=== PATIENT | female | born 1965 | race Caucasian/White ===

== ENCOUNTER 2016-07-23 17:16 | Inpatient (IN) | payer OTHER ==
[2016-07-23] VITALS (9 sets, daily range): BP systolic 114–209; BP diastolic 64–118; PULSE 71–113; RESP 16–18; TEMP 97.8–98; O2SAT 96–99
[~2016-07-23] VITALS: Ht 165.1 cm; Wt 62.2 kg
[~2016-07-23 17:16] MED LIST: TRAM50 PO
[2016-07-23] MEDS: NITROGLYCERIN 0.4 MG SL 25 TABS/BTL SL SCH ×3 (18:10→18:27)
[2016-07-23] MEDS: SODIUM CHLORIDE 0.9% FLUSH 5 ML FLUSH IVF PRN (18:10)
[2016-07-23] MEDS ORDERED: ASPIRIN 81 MG CHEW TAB PO ONE (18:15)
--- NOTE | 2016-07-23 18:32 | PD ---
HPI Chief Complaint: Cardiac Complaint Time Seen by Provider: 18:02 Travel History International Travel<30 days: No Contact w/Intl Traveler<30days: No Traveled to known affect area: No History of Present Illness HPI 51-year-old female here for evaluation of left arm pain and chest pain. Patient primarily complains of an ache in her left arm that has been intermittent since 1:30 PM. There are no modifying factors. She denies trauma. Pain initially started while the patient was driving. No change with exertion. No change with palpation or movement. Occasionally the patient has a discomfort in her chest. She denies history of cardiac disease. There is family history of cardiac disease on her mom's side. She smokes about a half a pack of cigarettes per day. No paresthesias or motor deficits. No history of DVT or PE. No fevers, chills, cough, or recent illness. PFSH Past Medical History Medical History: Denies Significant Hx Diminished Hearing: No Tetanus Vaccination: > 5 Years Influenza Vaccination: No ?: Not Menopausal: Yes Tubal Ligation: Yes Past Surgical History Section: Yes Social History Alcohol Use: Yes (OCASSIONALLY ) Tobacco Use: Yes (1/2 PACK) Substance Use: No Allergies-Medications (Allergen,Severity, Reaction): Coded Allergies: No Known Allergies (Unverified , 07/23/16) Reported Meds & Prescriptions Reported Meds & Active Scripts Active No Active Prescriptions or Reported Medications Review of Systems Except as stated in HPI: all other systems reviewed are Neg Physical Exam Narrative GENERAL: Well-developed, well-nourished, comfortable, no acute distress. SKIN: Warm and dry. HEAD: Atraumatic. Normocephalic. EYES: Pupils equal and round. No scleral icterus. No injection or drainage. ENT: Mucous membranes pink and moist. NECK: Trachea midline. No JVD. CARDIOVASCULAR: Regular rate and rhythm. Distal pulses brisk and equal bilaterally. RESPIRATORY: No accessory muscle use. Clear to auscultation. Breath sounds equal bilaterally. GASTROINTESTINAL: Abdomen soft, non-tender, nondistended. MUSCULOSKELETAL: No obvious deformities. No clubbing. No cyanosis. No edema. Left arm and shoulder without deformity, without edema, without tenderness, with normal range of motion. NEUROLOGICAL: Awake and alert. No obvious cranial nerve deficits. Motor grossly within normal limits. Normal speech. PSYCHIATRIC: Appropriate mood and affect; insight and judgment normal. Data Data Last Documented VS Vital Signs Date Time Temp Pulse Resp B/P Pulse Ox O2 Delivery O2 Flow Rate FiO2 07/23/16 19:09 17 99 Room Air 07/23/16 19:09 88 07/23/16 19:09 121/74 07/23/16 17:20 97.8 Orders Electrocardiogram (07/23/16 ) Basic Metabolic Panel (Bmp) (07/23/16 18:02) Ckmb (Isoenzyme) Profile (07/23/16 18:02) Complete Blood Count With Diff (07/23/16 18:02) Magnesium (Mg) (07/23/16 18:02) Prothrombin Time / Inr (Pt) (07/23/16 18:02) Act Partial Throm Time (Ptt) (07/23/16 18:02) Troponin I (07/23/16 18:02) Chest, Single Ap (07/23/16 18:02) Ecg Monitoring (07/23/16 18:02) Iv Access Insert/Monitor (07/23/16 18:02) Oximetry (07/23/16 18:02) Aspirin Chew (Aspirin Chew) (07/23/16 18:15) Sodium Chloride 0.9% Flush (Ns Flush) (07/23/16 18:15) Nitroglycerin Sl (Nitrostat Sl) (07/23/16 18:15) CKMB (07/23/16 18:00) CKMB% (07/23/16 18:00) Labs Laboratory Tests Test 07/23/16 18:00 White Blood Count 12.2 TH/MM3 Red Blood Count 4.59 MIL/MM3 Hemoglobin 14.5 GM/DL Hematocrit 41.9 % Mean Corpuscular Volume 91.3 FL Mean Corpuscular Hemoglobin 31.6 PG Mean Corpuscular Hemoglobin 34.7 % Concent Red Cell Distribution Width 12.6 % Platelet Count 324 TH/MM3 Mean Platelet Volume 8.1 FL Neutrophils (%) (Auto) 71.6 % Lymphocytes (%) (Auto) 21.8 % Monocytes (%) (Auto) 5.7 % Eosinophils (%) (Auto) 0.3 % Basophils (%) (Auto) 0.6 % Neutrophils # (Auto) 8.8 TH/MM3 Lymphocytes # (Auto) 2.7 TH/MM3 Monocytes # (Auto) 0.7 TH/MM3 Eosinophils # (Auto) 0.0 TH/MM3 Basophils # (Auto) 0.1 TH/MM3 CBC Comment DIFF FINAL Differential Comment Prothrombin Time 11.1 SEC Prothromb Time International 1.0 RATIO Ratio Activated Partial 26.0 SEC Thromboplast Time Sodium Level 139 MEQ/L Potassium Level 4.0 MEQ/L Chloride Level 103 MEQ/L Carbon Dioxide Level 26.3 MEQ/L Anion Gap 10 MEQ/L Blood Urea Nitrogen 19 MG/DL Creatinine 0.97 MG/DL Estimat Glomerular Filtration 61 ML/MIN Rate Random Glucose 96 MG/DL Calcium Level 9.1 MG/DL Magnesium Level 2.1 MG/DL Total Creatine Kinase 143 U/L Creatine Kinase MB 13.3 NG/ML Troponin I 1.98 NG/ML MDM Medical Decision Making Medical Screen Exam Complete: Yes Emergency Medical Condition: Yes Medical Record Reviewed: Yes Interpretation(s) EKG: Sinus, rate 88, normal axis, normal intervals, ST depressions in inferior, anterior, and lateral leads. The patient has had slight ST depressions in similar leads on previous EKG. No ST segment elevations. Differential Diagnosis ACS, pneumothorax, peritonitis, PE, pneumonia, dissection, musculoskeletal pain Narrative Course Initial vital signs show heart rate 113, blood pressure 209/118, pulse ox 97% on room air, oral temp of 97.8F. Blood pressure improved to 121/74 after sublingual nitroglycerin. Her heart rate also improved to 88 without any intervention. CBC is unremarkable. BMP is unremarkable. Chest x-ray shows no active disease. Troponin is 1.98. Patient's left arm pain initially improved after sublingual nitroglycerin, however returned shortly after. EKG shows ST depressions in inferior, anterior, and lateral leads. There are no ST segment elevations, therefore STEMI alert was not called. Case discussed with on-call mangle roll operator Dr. Rizo who was able to review a copy of the patient's EKG. He recommends starting the patient on a heparin drip as well as a nitro drip, NPO after midnight, and plans for cardiac catheterization in the morning. Patient was made aware of all findings and plan for admission for cardiac catheterization in the morning. Case discussed with hospitalist Dr. Dang who will admit the patient to her service to the [facility]. Diagnosis Primary Impression: NSTEMI (non-ST elevated myocardial infarction) Admitting Information Admitting Physician Requests: Admit Scripts No Active Prescriptions or Reported Meds Dawit Doherty MD Jul 23, 2016 18:32
--- NOTE | 2016-07-23 18:38 | RADRPT ---
EXAM DATE/TIME: 07/23/2016 18:12 [facility] COMPARISON: CHEST SINGLE AP, January 11, 2016, 8:46. INDICATIONS : Chest pain, radiates to left arm. MEDICAL HISTORY : None. SURGICAL HISTORY : None. ENCOUNTER: Initial ACUITY: 1 day PAIN SCORE: 5/10 LOCATION: Bilateral chest FINDINGS: A single view of the chest demonstrates the lungs to be symmetrically aerated without evidence of mas s, infiltrate or effusion. The cardiomediastinal contours are unremarkable. Osseous structures are i ntact. CONCLUSION: No active disease. Simon Redman MD on July 23, 2016 at 18:34 Board Certified Radiologist. This report was verified electronically.
[2016-07-23 18:45] LABS: AUTOMATED NEUTROPHIL # 8.8 TH/MM3 (1.8-7.7); BASOPHIL # 0.1 TH/MM3 (0-0.2); BASOPHIL % 0.6 % (0.0-2.0); EOSINOPHIL % 0.3 % (0.0-4.0); HEMATOCRIT 41.9 % (35.0-46.0); HEMO FLAGS DIFF FINAL; LYMPH % 21.8 % (9.0-44.0); LYMPHOCYTE # 2.7 TH/MM3 (1.0-4.8); MEAN CELL VOLUME 91.3 FL (80.0-100.0); MEAN CORPUSCULAR HEMOGLOBIN 31.6 PG (27.0-34.0); MEAN CORPUSCULAR HGB CONC 34.7 % (32.0-36.0); MONO % 5.7 % (0.0-8.0); NEUT % 71.6 % (16.0-70.0); PLATELET COUNT 324 TH/MM3 (150-450); RED BLOOD COUNT 4.59 MIL/MM3 (4.00-5.30); RED CELL DISTRIBUTION WIDTH 12.6 % (11.6-17.2); WHITE BLOOD COUNT 12.2 TH/MM3 (4.0-11.0)
[2016-07-23 19:02] LABS: PROTHROMBIN TIME - PATIENT 11.1 SEC (9.8-11.6)
[2016-07-23 19:05] LABS: ANION GAP 10 MEQ/L (5-15); BICARBONATE 26.3 MEQ/L (21.0-32.0); BLOOD UREA NITROGEN 19 MG/DL (7-18); CHLORIDE 103 MEQ/L (98-107); GLOMERULAR FILTRATION RATE 61 ML/MIN (>89); MAGNESIUM 2.1 MG/DL (1.5-2.5); SODIUM (NA) 139 MEQ/L (136-145)
[2016-07-23 19:10] LABS: CREATINE KINASE 143 U/L (26-192)
[2016-07-23 19:31] LABS: CKMB 13.3 NG/ML (0.5-3.6)
[2016-07-23] MEDS ORDERED: NITROGLYCERIN-DEXTROSE INJ 250 ML IV SCH (19:45)
[2016-07-23] MEDS ORDERED: NALOXONE HCL 0.4 MG/ML AMP IV PRN (19:45)
[2016-07-23] MEDS ORDERED: SODIUM CHLORIDE 0.9% FLUSH 5 ML FLUSH FLUSH PRN (19:45)
[2016-07-23] MEDS ORDERED: HEPARIN SODIUM - IV 10,000 UNITS/10 ML VIAL IV ONE (19:45)
[2016-07-23] MEDS ORDERED: HEPARIN-D5W INJ 250 ML IV SCH (19:45)
--- NOTE | 2016-07-23 20:35 | HHI.HP ---
[facility] Service [facility] Primary Care Physician Ewa Oconnor MD Admission Diagnosis NSTEMI Diagnoses: Chief Complaint: Chest pain Travel History International Travel<30 Days: No Contact w/Intl Traveler <30 Da: No Traveled to Known Affected Are: No History of Present Illness History taken from patient and ED physician. 51-year-old female with no medical history presented to the ED with complaints of chest pain and left arm pain. Patient states she was driving today and experienced sharp left arm pain that lasted about 20 minutes. Shortly after she began to have chest pain that was unrelieved until she received nitroglycerin in the ED. She denies any associated dizziness, shortness of breath, nausea, vomiting or diarrhea. She denies any history of CO, strokes, DVTs or PEs. She states 19 years ago she did have a left endarterectomy, last ultrasound was 7 years ago, she was not placed on any medications following. Review of Systems Constitutional: DENIES: Fever, Chills, Dizziness Respiratory: DENIES: Cough, Sputum production, Shortness of breath Cardiovascular: COMPLAINS OF: Chest pain, DENIES: Palpitations, Syncope, Dyspnea on Exertion, Lower Extremity Edema, Orthopnea Gastrointestinal: DENIES: Black stools, Bloody stools, Constipation, Diarrhea, Nausea, Vomiting Genitourinary: DENIES: Hematuria, Dysuria Musculoskeletal: DENIES: Back pain Integumentary: DENIES: Rash Hematologic/lymphatic: DENIES: Lymphadenopathy Neurologic: DENIES: Headache Past Family Social History Past Medical History Patient denies any medical history Past Surgical History Left endarterectomy 1997 1999 Reported Medications Reported Meds & Active Scripts Active No Active Prescriptions or Reported Medications Allergies: Coded Allergies: No Known Allergies (Unverified , 07/23/16) Active Ordered Medications Current Medications Medications (Trade) Dose Ordered Sig/[place] Route Start Time Stop Time Status Last Admin (Heparin Inj) 5,000 units UNSCH PRN IV 07/24/16 01:45 Heparin Sodium (Porcine) 2500 units 2,500 units UNSCH PRN IV 07/24/16 01:45 Heparin Sodium/ Dextrose 250 ml @ 0 mls/hr TITRATE IV 07/23/16 19:45 07/23/16 19:58 (Nitroglycerin-Dextrose Inj) 250 ml @ 0 mls/hr TITRATE IV 07/23/16 19:45 07/23/16 20:01 (NS Flush) 2 ml UNSCH PRN FLUSH 07/23/16 19:45 (NS Flush) 2 ml BID FLUSH 07/23/16 21:00 (Narcan Inj) 0.4 mg UNSCH PRN IV 07/23/16 19:45 Family History Mom: Cardiac disease Social History Tobacco use: 1/2 ppd since age 20 Alcohol use: Occasionally Illicit drug use: Denies Physical Exam Vital Signs Vital Signs Date Time Temp Pulse Resp B/P Pulse Ox O2 Delivery O2 Flow Rate FiO2 07/23/16 20:11 76 18 140/89 98 Room Air 07/23/16 20:06 16 07/23/16 20:00 89 17 155/78 98 Room Air 07/23/16 19:09 17 99 Room Air 07/23/16 19:09 88 17 99 Room Air 07/23/16 19:09 88 17 121/74 99 Room Air 07/23/16 18:20 92 18 114/64 98 Room Air 07/23/16 18:15 89 18 149/92 98 Room Air 07/23/16 18:15 16 07/23/16 18:05 92 17 98 Room Air 07/23/16 18:05 18 98 Room Air 07/23/16 17:20 97.8 113 16 209/118 97 Physical Exam GENERAL: This is a well-nourished, well-developed patient, in no apparent distress. SKIN: No rashes, ecchymoses or lesions. Cool and dry. HEAD: Atraumatic. Normocephalic. EYES: Pupils equal round and reactive. ENT: Nose without bleeding, purulent drainage or septal hematoma. Airway patent. NECK: Trachea midline. No JVD CARDIOVASCULAR: Regular rate and rhythm without murmurs, gallops, or rubs. RESPIRATORY: Clear to auscultation. Breath sounds equal bilaterally. No wheezes , rales, or rhonchi. GASTROINTESTINAL: Abdomen soft, non-tender, nondistended. No guarding. MUSCULOSKELETAL: Extremities without clubbing, cyanosis, or edema. No calf tenderness. NEUROLOGICAL: Awake and alert. Motor and sensory grossly within normal limits. Normal speech. Laboratory Laboratory Tests Test 07/23/16 18:00 White Blood Count 12.2 Red Blood Count 4.59 Hemoglobin 14.5 Hematocrit 41.9 Mean Corpuscular Volume 91.3 Mean Corpuscular Hemoglobin 31.6 Mean Corpuscular Hemoglobin 34.7 Concent Red Cell Distribution Width 12.6 Platelet Count 324 Mean Platelet Volume 8.1 Neutrophils (%) (Auto) 71.6 Lymphocytes (%) (Auto) 21.8 Monocytes (%) (Auto) 5.7 Eosinophils (%) (Auto) 0.3 Basophils (%) (Auto) 0.6 Neutrophils # (Auto) 8.8 Lymphocytes # (Auto) 2.7 Monocytes # (Auto) 0.7 Eosinophils # (Auto) 0.0 Basophils # (Auto) 0.1 CBC Comment DIFF FINAL Differential Comment Prothrombin Time 11.1 Prothromb Time International 1.0 Ratio Activated Partial 26.0 Thromboplast Time Sodium Level 139 Potassium Level 4.0 Chloride Level 103 Carbon Dioxide Level 26.3 Anion Gap 10 Blood Urea Nitrogen 19 Creatinine 0.97 Estimat Glomerular Filtration 61 Rate Random Glucose 96 Calcium Level 9.1 Magnesium Level 2.1 Total Creatine Kinase 143 Creatine Kinase MB 13.3 Troponin I 1.98 Result Diagram: 07/23/16 1800 07/23/16 1800 Imaging Last Impressions Chest X-Ray 07/23/16 1802 Signed Impressions: Service Date/Time: Saturday, July 23, 2016 18:12 - CONCLUSION: No active disease. Simon Redman MD Assessment and Plan Problem List: (1) NSTEMI (non-ST elevated myocardial infarction) ICD Code: I21.4 Status: Acute Assessment and Plan 51-year-old female with no medical history presented with: NSTEMI EKG shows sinus rhythm with ST depression in leads II, II, AVF, V3, V4 and V6 Chest x-ray unremarkable Troponin first set 1.98, 2nd set pending -Nitroglycerin drip was started -Heparin drip was started for CO protocol -Serial troponin and EKGs ordered -Consult cardiology, Dr. Rizo is planning for catheter in a.m. -Monitor tele DVT prophylaxis: Heparin Written by Sona NATH, acting as scribe for Dr. Dang on 07/23/16 at 2009. The documentation accurately reflects the work performed [id number] and decisions made by me and the physician Dr Dang on 07/23/16. The documentation accurately reflects the work performed [id number] by me on at 2010 Discussed Condition With Patient and ED physician Physician Certification 2 Midnight Certification Type: Admission for Inpatient Services Order for Inpatient Services The services are ordered in accordance with Medicare regulations or non- Medicare payer requirements, as applicable. In the case of services not specified as inpatient-only, they are appropriately provided as inpatient services in accordance with the 2-midnight benchmark. Estimated LOS (days): 3 days is the estimated time the patient will need to remain in the hospital, assuming treatment plan goals are met and no additional complications. Post-Hospital Plan: Sona Newman Jul 23, 2016 20:34 Chance Dang MD Jul 24, 2016 08:01
[2016-07-23] MEDS: SODIUM CHLORIDE 0.9% FLUSH 5 ML FLUSH FLUSH SCH (21:00)
[2016-07-24] VITALS (18 sets, daily range): BP systolic 102–128; BP diastolic 66–78; PULSE 67–98; RESP 16–18; TEMP 97.6–100.3; O2SAT 94–98
[2016-07-24] MEDS ORDERED: HEPARIN SODIUM - IV 10,000 UNITS/10 ML VIAL IV PRN ×2 (01:45)
[2016-07-24 01:51] LABS: CKMB 97.1 NG/ML (0.5-3.6)
[2016-07-24 03:06] LABS: APTT (PATIENT) 33.4 SEC (24.3-30.1)
[2016-07-24 03:51] LABS: APTT (PATIENT) 33.8 SEC (24.3-30.1)
[2016-07-24 04:10] LABS: BICARBONATE 27.3 MEQ/L (21.0-32.0); POTASSIUM 3.9 MEQ/L (3.5-5.1)
[2016-07-24 04:13] LABS: AUTOMATED NEUTROPHIL # 6.4 TH/MM3 (1.8-7.7); BASOPHIL # 0.1 TH/MM3 (0-0.2); EOSINOPHIL # 0.1 TH/MM3 (0-0.4); EOSINOPHIL % 1.2 % (0.0-4.0); HEMATOCRIT 40.9 % (35.0-46.0); HEMO FLAGS DIFF FINAL; LYMPHOCYTE # 2.8 TH/MM3 (1.0-4.8); MEAN CELL VOLUME 90.3 FL (80.0-100.0); MEAN CORPUSCULAR HEMOGLOBIN 31.4 PG (27.0-34.0); MEAN CORPUSCULAR HGB CONC 34.8 % (32.0-36.0); MONO % 8.5 % (0.0-8.0); NEUT % 62.3 % (16.0-70.0); PLATELET COUNT 295 TH/MM3 (150-450); RED BLOOD COUNT 4.53 MIL/MM3 (4.00-5.30); RED CELL DISTRIBUTION WIDTH 12.8 % (11.6-17.2); WHITE BLOOD COUNT 10.3 TH/MM3 (4.0-11.0)
[2016-07-24 04:33] LABS: CKMB 106.5 NG/ML (0.5-3.6)
--- NOTE | 2016-07-24 07:41 | PD.CONS ---
HPI Service CV Consult Requested By Dr. Dang Reason for Consult NSTEMI Primary Care Physician Ewa Oconnor MD History of Present Illness This is a 51 yo WF smoker with no prior cardiac history who presented to the ED yesterday with chest and left arm pain. She states she's had intermittent bilateral arm pain and numbness for awhile but yesterday as she was sitting in her car on a break her left arm became heavy with pain developing in her chest radiating to left arm. She denies SOB, palpitations or nausea. (Lizy Benavides) Review of Systems Consitutional: DENIES: Fatigue, Fever, Chills Respiratory: DENIES: Cough, Snoring, Shortness of breath, Wheezing, Sputum production Cardiovascular: DENIES: Chest pain, Palpitations, Syncope, Tachycardia Gastrointestinal: DENIES: Nausea, Vomiting, Change in bowel habits, Reflux, Bloody stools, Melena (Lizy Benavides) Past Family Social History Allergies: Coded Allergies: No Known Allergies (Unverified , 07/23/16) Past Medical History tobacco abuse Past Surgical History Left endarterectomy 1997 1999 Reported Medications none Active Ordered Medications Current Medications Medications (Trade) Dose Ordered Sig/[place]iet[place] Route Start Time Stop Time Status Last Admin (Heparin Inj) 5,000 units UNSCH PRN IV 07/24/16 01:45 Heparin Sodium (Porcine) 2500 units 2,500 units UNSCH PRN IV 07/24/16 01:45 Heparin Sodium/ Dextrose 250 ml @ 0 mls/hr TITRATE IV 07/23/16 19:45 07/23/16 19:58 (Nitroglycerin-Dextrose Inj) 250 ml @ 0 mls/hr TITRATE IV 07/23/16 19:45 07/23/16 20:01 (NS Flush) 2 ml UNSCH PRN FLUSH 07/23/16 19:45 (NS Flush) 2 ml BID FLUSH 07/23/16 21:00 (Narcan Inj) 0.4 mg UNSCH PRN IV 07/23/16 19:45 Family History mother has cardiac disease Social History tobacco smoker since a teenager (Lizy Benavides) Physical Exam Vital Signs Vital Signs Date Time Temp Pulse Resp B/P Pulse Ox O2 Delivery O2 Flow Rate FiO2 07/24/16 05:00 76 18 123/73 96 Nasal Cannula 2 07/24/16 03:00 78 18 112/71 94 Nasal Cannula 2 07/24/16 01:00 71 18 128/76 97 Nasal Cannula 2 07/23/16 23:00 71 18 127/74 96 Nasal Cannula 2 07/23/16 22:00 98.0 77 17 136/76 98 Room Air 07/23/16 20:11 76 18 140/89 98 Room Air 07/23/16 20:06 16 07/23/16 20:00 89 17 155/78 98 Room Air 07/23/16 19:09 17 99 Room Air 07/23/16 19:09 88 17 99 Room Air 07/23/16 19:09 88 17 121/74 99 Room Air 07/23/16 18:20 92 18 114/64 98 Room Air 07/23/16 18:15 89 18 149/92 98 Room Air 07/23/16 18:15 16 07/23/16 18:05 92 17 98 Room Air 07/23/16 18:05 18 98 Room Air 07/23/16 17:20 97.8 113 16 209/118 97 Physical Exam GENERAL: SKIN: Warm and dry. HEAD: Atraumatic. Normocephalic. NECK: Trachea midline. No JVD. CARDIOVASCULAR: Regular rate and rhythm. RESPIRATORY: No accessory muscle use. Clear to auscultation. Breath sounds equal bilaterally. GASTROINTESTINAL: Abdomen soft, non-tender, nondistended. MUSCULOSKELETAL: Extremities without clubbing, cyanosis, or edema. No obvious deformities. NEUROLOGICAL: Awake and alert. No obvious cranial nerve deficits. Motor grossly within normal limits. Normal speech. PSYCHIATRIC: Appropriate mood and affect; insight and judgment normal. Laboratory Laboratory Tests Test 07/23/16 07/23/16 07/23/16 07/23/16 18:00 21:00 22:43 23:30 White Blood Count 12.2 Red Blood Count 4.59 Hemoglobin 14.5 Hematocrit 41.9 Mean Corpuscular Volume 91.3 Mean Corpuscular Hemoglobin 31.6 Mean Corpuscular Hemoglobin 34.7 Concent Red Cell Distribution Width 12.6 Platelet Count 324 Mean Platelet Volume 8.1 Neutrophils (%) (Auto) 71.6 Lymphocytes (%) (Auto) 21.8 Monocytes (%) (Auto) 5.7 Eosinophils (%) (Auto) 0.3 Basophils (%) (Auto) 0.6 Neutrophils # (Auto) 8.8 Lymphocytes # (Auto) 2.7 Monocytes # (Auto) 0.7 Eosinophils # (Auto) 0.0 Basophils # (Auto) 0.1 CBC Comment DIFF FINAL Differential Comment Prothrombin Time 11.1 Prothromb Time International 1.0 Ratio Activated Partial 26.0 Thromboplast Time Sodium Level 139 Potassium Level 4.0 Chloride Level 103 Carbon Dioxide Level 26.3 Anion Gap 10 Blood Urea Nitrogen 19 Creatinine 0.97 Estimat Glomerular Filtration 61 Rate Random Glucose 96 Calcium Level 9.1 Magnesium Level 2.1 Total Creatine Kinase 143 Creatine Kinase MB 13.3 Troponin I 1.98 Beta HCG, Qualitative 4 Blood Type B POSITIVE B POSITIVE B POSITIVE Antibody Screen POSITIVE Antibody Identification Non-Specific Agglutinin Antigen Identification Leb Antigen - NEGATIVE Blood Bank Comment Crossmatch Leukocyte-Reduced Red Blood Cells Test 07/24/16 07/24/16 07/24/16 00:30 02:20 03:26 Total Creatine Kinase 749 802 Creatine Kinase MB 97.1 106.5 Creatine Kinase MB % 13.0 13.3 Troponin I 18.90 23.20 Activated Partial 33.4 33.8 Thromboplast Time White Blood Count 10.3 Red Blood Count 4.53 Hemoglobin 14.2 Hematocrit 40.9 Mean Corpuscular Volume 90.3 Mean Corpuscular Hemoglobin 31.4 Mean Corpuscular Hemoglobin 34.8 Concent Red Cell Distribution Width 12.8 Platelet Count 295 Mean Platelet Volume 8.3 Neutrophils (%) (Auto) 62.3 Lymphocytes (%) (Auto) 27.0 Monocytes (%) (Auto) 8.5 Eosinophils (%) (Auto) 1.2 Basophils (%) (Auto) 1.0 Neutrophils # (Auto) 6.4 Lymphocytes # (Auto) 2.8 Monocytes # (Auto) 0.9 Eosinophils # (Auto) 0.1 Basophils # (Auto) 0.1 CBC Comment DIFF FINAL Differential Comment Sodium Level 138 Potassium Level 3.9 Chloride Level 106 Carbon Dioxide Level 27.3 Anion Gap 5 Blood Urea Nitrogen 15 Creatinine 0.74 Estimat Glomerular Filtration 83 Rate Random Glucose 96 Calcium Level 9.0 (Lizy Benavides) Result Diagram: 07/24/16 0326 07/24/16 0326 Imaging Last Impressions Chest X-Ray 07/23/16 1802 Signed Impressions: Service Date/Time: Saturday, July 23, 2016 18:12 - CONCLUSION: No active disease. Simon Redman MD (Lizy Benavides) Assessment and Plan Problem List: (1) NSTEMI (non-ST elevated myocardial infarction) Assessment and Plan: ECG shows ST depression to inferior, precordial and lateral leads. Troponins elevated. Will plan for cardiac catheterization this morning. (Lizy Benavides) Assessment and Plan NSTEMI - + symptoms. + EKG changes. Plan for [facility]. 2d echo. (Bright Rizo MD) Lizy Benavides Jul 24, 2016 07:41 Bright Rizo MD Jul 24, 2016 07:48
[2016-07-24] MEDS ORDERED: MIDAZOLAM HCL 2 MG/2 ML VIAL ONE ×2 (08:52→09:24)
[2016-07-24] MEDS ORDERED: HEPARIN-NS/PF INJ 500 ML ONE (08:52)
[2016-07-24] MEDS: SODIUM CHLORIDE 0.9% FLUSH 5 ML FLUSH FLUSH SCH ×2 (09:00→20:43)
[2016-07-24] MEDS: ASPIRIN EC 81 MG TABEC PO SCH (09:00)
[2016-07-24] MEDS: ATORVASTATIN 40 MG TAB PO SCH (09:00)
[2016-07-24] MEDS: METOPROLOL TARTRATE 25 MG TAB PO SCH ×2 (09:00→20:42)
[2016-07-24] MEDS ORDERED: HEPARIN SODIUM - IV 10,000 UNITS/10 ML VIAL ONE (09:16)
[2016-07-24] MEDS ORDERED: BIVALIRUDIN 250 MG VIAL ONE (09:26)
[2016-07-24] MEDS ORDERED: PRASUGREL 10 MG TAB ONE (09:42)
[2016-07-24] MEDS ORDERED: IOHEXOL 350 MG/ML 50 ML BTL (for Cath Lab) OTHER ONE (11:04)
[2016-07-24] MEDS ORDERED: IOHEXOL 350 MG/ML 100 ML BTL (for Cath Lab) OTHER ONE (11:04)
[2016-07-24] MEDS ORDERED: BACITRACIN OINT 0.9 GM PKT TOP ONE (11:30)
[2016-07-24] MEDS ORDERED: MISC INFORMATION XX ONE (11:30)
[2016-07-24] MEDS ORDERED: LIDOCAINE 2% JELLY 30 ML TUBE TOP PRN (11:30)
--- NOTE | 2016-07-24 11:30 | MA ---
cc: DANNY ARIAS DATE 07/24/2016 PROCEDURE PERFORMED 1. Fluoroscopy with interpretation 2. Coronary angiography 3. Left heart catheterization 4. Percutaneous intervention with bare metal stent to the ramus intermedius branch. METHOD The risks, benefits and alternatives discussed with the patient. The patient understood and consented to the procedure. PROCEDURE The patient was brought into the catheterization lab, placed on the catheterization table. The right wrist was prepped and draped in a sterile fashion. The right wrist was anesthetized with 2% lidocaine. The right radial artery was cannulated and a 6-Bolivian 7 cm sheath was placed without difficulty. Left heart catheterization; A 5-Bolivian JR-5 catheter was advanced across the aortic valve without difficulty intraventricular hemodynamics measured 109/7 mmHg. CORONARY ANGIOGRAPHY The left coronary circulation was selectively engaged with a 5-Bolivian JL-3.5 catheter. Right coronary circulation was selectively engaged with a 5-Bolivian JR-5 catheter. Angiography findings as follows: 1. Left main is very short, but angiographically normal. 2. Left anterior descending coronary is a large caliber size angiographically normal. 3. Left circumflex is a dominant vessel giving rise to a left-sided posterior descending branch and a first obtuse marginal branch, both which are angiographically normal. There is a ramus intermedius branch with a 90% discrete stenosis proximally. 4. The right coronary is nondominant and angiographically normal. PERCUTANEOUS INTERVENTION The left coronary circulation was selectively engaged with a 6-Bolivian JL-4 guide catheter. Angiomax was administered throughout the entire procedure to maintain appropriate angulation. A 0.014 inch 180 cm Facishare run-through wire was navigated down the distal ramus intermedius branch. A 2.0 x 12 mm RX bare metal stent was advanced to the proximal ramus intermedius branch and deployed to 12 atmospheres. Repeat angiography showed no residual stenosis. Careful attention was paid not to extend the stent into the left main. The wire was removed. Guide catheter removed. HemoBand applied. CONCLUSIONS 1. Severe single-vessel coronary artery disease involving the ramus intermedius branch. 2. Successful percutaneous intervention with bare metal stent to the ramus intermedius branch. 3. Normal left-sided filling pressures. PLAN The patient will be monitored closely for any post procedural complications. We will get a 2-D echocardiogram for ejection fraction and we will monitor for any arrhythmias. We will initiate aspirin, Effient, statin, beta sharon. Anticipate discharge tomorrow. MD CANELO Cee /9:54 AM /11:24 AM HALEY
--- NOTE | 2016-07-24 13:30 | HHI.PR ---
Subjective Remarks Follow-up for chest pain Status post cardiac catheterization with stent placement, mild chest pain now but a lot better, no shortness of breath, no palpitations, nausea or vomiting. Objective Vitals Vital Signs Date Time Temp Pulse Resp B/P Pulse Ox O2 Delivery O2 Flow Rate FiO2 07/24/16 12:54 79 07/24/16 08:40 79 20 117/78 97 07/24/16 07:40 98.6 75 18 124/72 96 Room Air 07/24/16 05:00 76 18 123/73 96 Nasal Cannula 2 07/24/16 03:00 78 18 112/71 94 Nasal Cannula 2 07/24/16 01:00 71 18 128/76 97 Nasal Cannula 2 07/23/16 23:00 71 18 127/74 96 Nasal Cannula 2 07/23/16 22:00 98.0 77 17 136/76 98 Room Air 07/23/16 20:11 76 18 140/89 98 Room Air 07/23/16 20:06 16 07/23/16 20:00 89 17 155/78 98 Room Air 07/23/16 19:09 17 99 Room Air 07/23/16 19:09 88 17 99 Room Air 07/23/16 19:09 88 17 121/74 99 Room Air 07/23/16 18:20 92 18 114/64 98 Room Air 07/23/16 18:15 89 18 149/92 98 Room Air 07/23/16 18:15 16 07/23/16 18:05 92 17 98 Room Air 07/23/16 18:05 18 98 Room Air 07/23/16 17:20 97.8 113 16 209/118 97 I/O 07/23/16 07/23/16 07/23/16 07/24/16 07/24/16 07/24/16 07:00 15:00 23:00 07:00 15:00 23:00 Intake Total 1.5 ml Balance 1.5 ml Intake IV Total 1.5 ml Result Diagram: 07/24/166 07/24/16325 Objective Remarks Not in distress, well-nourished, looks stated age PERRL, pink conjunctiva without injection, anicteric Nose without bleeding, airway patent, oropharynx clear Supple neck, no masses or thyromegaly, trachea midline Normal rate and regular rhythm, no murmurs gallops or rubs appreciated. Clear to auscultation and symmetric bilaterally, normal respiratory effort. Normal bowel sounds, soft, non-tender, nondistended, no guarding. Extremities without clubbing, cyanosis, or edema. No rash of generalized distribution. Skin is warm and dry. AAO x3, no cranial nerve deficits, moves all 4 extremities, no focal neurologic deficits Normal mood, appropriate affect Procedures Status post cardiac catheterization and PCI to the Ramus intermedius. A/P Problem List: (1) NSTEMI (non-ST elevated myocardial infarction) ICD Code: I21.4 Status: Acute Assessment and Plan 51-year-old female with no medical history presented with: NSTEMI - EKG shows sinus rhythm with ST depression in leads II, II, AVF, V3, V4 and V6, troponin max of 23.3, cardiology was consulted, status post cardiac catheterization with stenting of the ramus intermedius. Aspirin, Lipitor, metoprolol, Effient. Further management per cardiology. Leukocytosis-resolved likely stress-induced. DVT prophylaxis: Effient Discharge Planning Discharge tomorrow once cleared by cardiology. Josue Koehler MD Jul 24, 2016 13: at 2009 Josue Koehler MD Jul 24, 2016 13:30
--- NOTE | 2016-07-24 13:41 | EKG ---
Date Performed: 07/24/2016 Time Performed: 00:38:07 PTAGE: 51 years EKG: Sinus rhythm MODERATE ST DEPRESSION ABNORMAL ECG Compared to prior tracing no significant change PREVIOUS TRACING : 07/24/2016 00.38.07 DOCTOR: Cari Ruiz Interpretating Date/Time 07/24/2016 13:40:15
--- NOTE | 2016-07-24 13:41 | EKG ---
Date Performed: 07/23/2016 Time Performed: 17:47:44 PTAGE: 51 years EKG: Sinus rhythm ST DEPRESSION, CONSIDER SUBENDOCARDIAL INJURY ABNORMAL ECG Compared to prior tracing no significant change PREVIOUS TRACING : 01/11/2016 08.44 DOCTOR: Cari Ruiz Interpretating Date/Time 07/24/2016 13:39:52
--- NOTE | 2016-07-24 14:47 | EKG ---
Date Performed: 07/24/2016 Time Performed: 05:57:25 PTAGE: 51 years EKG: Sinus rhythm WITH SINUS ARRHYTHMIA MODERATE ST DEPRESSION ABNORMAL ECG Compared to the PREVIOUS TRACING , there has been an increase in the diffuse ST segment changes. Patient has developed ST elevation in lead aVL. Clinical correlation to exclude myocardial ischemia or injur y would be important. PREVIOUS TRACIN07/23/2016 17.47 DOCTOR: Cari Ruiz Interpretating Date/Time 07/24/2016 14:46:00
[2016-07-24] MEDS ORDERED: SODIUM CHLORIDE 0.9% FLUSH 5 ML FLUSH IVF SCH (21:00)
[2016-07-25] VITALS (8 sets, daily range): BP systolic 112–118; BP diastolic 68–71; PULSE 69–82; RESP 16–17; TEMP 98.7–98.9; O2SAT 96–98
[2016-07-25 05:21] LABS: AUTOMATED NEUTROPHIL # 5.4 TH/MM3 (1.8-7.7); BASOPHIL # 0.1 TH/MM3 (0-0.2); BASOPHIL % 1.2 % (0.0-2.0); EOSINOPHIL # 0.1 TH/MM3 (0-0.4); EOSINOPHIL % 0.9 % (0.0-4.0); HEMATOCRIT 41.4 % (35.0-46.0); HEMO FLAGS DIFF FINAL; LYMPH % 30.1 % (9.0-44.0); LYMPHOCYTE # 2.9 TH/MM3 (1.0-4.8); MEAN CELL VOLUME 90.5 FL (80.0-100.0); MEAN CORPUSCULAR HEMOGLOBIN 31.7 PG (27.0-34.0); MONO % 12.2 % (0.0-8.0); NEUT % 55.6 % (16.0-70.0); PLATELET COUNT 293 TH/MM3 (150-450); RED BLOOD COUNT 4.58 MIL/MM3 (4.00-5.30); RED CELL DISTRIBUTION WIDTH 12.9 % (11.6-17.2); WHITE BLOOD COUNT 9.7 TH/MM3 (4.0-11.0)
[2016-07-25 05:48] LABS: BICARBONATE 25.1 MEQ/L (21.0-32.0)
[2016-07-25 05:50] LABS: HDL CHOLESTEROL 47.2 MG/DL (40.0-60.0)
[2016-07-25 06:07] LABS: CKMB 15.1 NG/ML (0.5-3.6)
--- NOTE | 2016-07-25 08:20 | PD.CARD.PN ---
Subjective Subjective Remarks no events Objective Medications Active Medications Aspirin (Ecotrin Ec) 81 mg DAILY PO; Start 07/24/16 at 09:00 Atorvastatin Calcium (Lipitor) 40 mg DAILY PO; Start 07/24/16 at 09:00 Bacitracin (Bacitracin Oint Packet) 0.9 gm ONCE ONCE TOP; Start 07/24/16 at 11: 30; Stop 07/24/16 at 11:31; Status DC Bivalirudin (Angiomax Inj) 250 mg STK-MED ONCE .ROUTE Last administered on 09:26; Admin Dose 250 MG; Start 07/24/16 at 09:26; Stop 07/24/16 at 09:27; Status DC Fentanyl Citrate (fentaNYL INJ) 100 mcg STK-MED ONCE .ROUTE Last administered on 07/24/16 08:53; Admin Dose 100 MCG; Start 07/24/16 at 08:53; Stop 07/24/16 at 08:54; Status DC Heparin Sodium (Porcine) (Heparin Inj) 10,000 units STK-MED ONCE .ROUTE Last administered on 07/24/16 09:16; Admin Dose 10,000 UNITS; Start 07/24/16 at 09: 16; Stop 07/24/16 at 09:17; Status DC Heparin Sodium/ Sodium Chloride (Heparin-NS/Pf Inj) 500 ml @ As Directed STK- MED ONCE .ROUTE; Start 07/24/16 at 08:52; Stop 07/24/16 at 08:53; Status DC Iohexol (OMNIPAQUE 350 INJ (Engineering Faculty Member)) 50 ml STK-MED ONCE OTHER; Start 07/24/16 at 11:04; Stop 07/24/16 at 11:05; Status DC Iohexol (OMNIPAQUE 350 INJ (Engineering Faculty Member)) 100 ml STK-MED ONCE OTHER; Start at 11:04; Stop 07/24/16 at 11:05; Status DC IV Flush (NS Flush) 2 ml BID IVF; Start 07/24/16 at 21:00; Stop 07/24/16 at 21: 00; Status DC Metoprolol Tartrate 25 mg 25 mg Q12HR PO Last administered on 07/24/16 20:42; Admin Dose 25 MG; Start 07/24/16 at 09:00 Midazolam HCl (Versed Inj) 2 mg STK-MED ONCE .ROUTE Last administered on 08:52; Admin Dose 2 MG; Start 07/24/16 at 08:52; Stop 07/24/16 at 08:53; Status DC Midazolam HCl (Versed Inj) 2 mg STK-MED ONCE .ROUTE Last administered on 09:24; Admin Dose 2 MG; Start 07/24/16 at 09:24; Stop 07/24/16 at 09:25; Status DC Miscellaneous Information 1 ONCE ONCE XX; Start 07/24/16 at 11:30; Stop at 11:32; Status DC Prasugrel (Effient) 10 mg DAILY PO; Start 07/25/16 at 09:00 Prasugrel (Effient) 60 mg STK-MED ONCE .ROUTE Last administered on 07/24/16 09: 42; Admin Dose 60 MG; Start 07/24/16 at 09:42; Stop 07/24/16 at 09:43; Status DC Vital Signs / I&O Vital Signs Date Time Temp Pulse Resp B/P Pulse Ox O2 Delivery O2 Flow Rate FiO2 07/25/16 06:00 78 07/25/16 05:00 77 07/25/16 04:00 82 07/25/16 04:00 98.7 69 16 118/68 98 07/25/16 03:00 78 07/25/16 02:00 72 07/25/16 01:00 72 07/25/16 00:00 74 07/25/16 00:00 98.9 80 116/71 98 07/24/16 23:00 79 07/24/16 22:00 79 07/24/16 21:00 86 07/24/16 20:00 100.3 98 16 105/74 98 07/24/16 20:00 92 07/24/16 19:00 95 07/24/16 17:00 92 07/24/16 16:57 97.6 87 16 102/66 97 07/24/16 16:00 97 07/24/16 15:00 90 07/24/16 14:00 94 07/24/16 13:00 96 07/24/16 12:54 79 07/24/16 12:00 98.2 67 17 115/70 98 07/24/16 08:40 79 20 117/78 97 I/O 07/24/16 07/24/16 07/24/16 07/25/16 07/25/16 07/25/16 07:00 15:00 23:00 07:00 15:00 23:00 Intake Total 360 ml Balance 360 ml Intake Oral 360 ml # Voids 2 Physical Exam GENERAL: SKIN: Warm and dry. HEAD: Normocephalic. EYES: No scleral icterus. No injection or drainage. NECK: Supple, trachea midline. No JVD or lymphadenopathy. CARDIOVASCULAR: Regular rate and rhythm without murmurs, gallops, or rubs. RESPIRATORY: Breath sounds equal bilaterally. No accessory muscle use. GASTROINTESTINAL: Abdomen soft, non-tender, nondistended. MUSCULOSKELETAL: No cyanosis, or edema. BACK: Nontender without obvious deformity. No CVA tenderness. Laboratory Laboratory Tests Test 07/25/16 04:45 White Blood Count 9.7 TH/MM3 Red Blood Count 4.58 MIL/MM3 Hemoglobin 14.5 GM/DL Hematocrit 41.4 % Mean Corpuscular Volume 90.5 FL Mean Corpuscular Hemoglobin 31.7 PG Mean Corpuscular Hemoglobin 35.0 % Concent Red Cell Distribution Width 12.9 % Platelet Count 293 TH/MM3 Mean Platelet Volume 8.1 FL Neutrophils (%) (Auto) 55.6 % Lymphocytes (%) (Auto) 30.1 % Monocytes (%) (Auto) 12.2 % Eosinophils (%) (Auto) 0.9 % Basophils (%) (Auto) 1.2 % Neutrophils # (Auto) 5.4 TH/MM3 Lymphocytes # (Auto) 2.9 TH/MM3 Monocytes # (Auto) 1.2 TH/MM3 Eosinophils # (Auto) 0.1 TH/MM3 Basophils # (Auto) 0.1 TH/MM3 CBC Comment DIFF FINAL Differential Comment Sodium Level 138 MEQ/L Potassium Level 4.0 MEQ/L Chloride Level 107 MEQ/L Carbon Dioxide Level 25.1 MEQ/L Anion Gap 6 MEQ/L Blood Urea Nitrogen 17 MG/DL Creatinine 0.78 MG/DL Estimat Glomerular Filtration 78 ML/MIN Rate Random Glucose 89 MG/DL Calcium Level 9.1 MG/DL Total Creatine Kinase 285 U/L Creatine Kinase MB 15.1 NG/ML Creatine Kinase MB % 5.3 % Triglycerides Level 67 MG/DL Cholesterol Level 158 MG/DL LDL Cholesterol 97 MG/DL HDL Cholesterol 47.2 MG/DL Cholesterol/HDL Ratio 3.34 RATIO Imaging Last Impressions Chest X-Ray 07/23/16 1802 Signed Impressions: Service Date/Time: Saturday, July 23, 2016 18:12 - CONCLUSION: No active disease. Simon Redman MD Assessment and Plan Problem List: (1) NSTEMI (non-ST elevated myocardial infarction) Assessment and Plan NSTEMI - PCI BMS ramus branch. asa effient statin bb echo this am. DC after echo Bright Rizo MD Jul 25, 2016 08:20
[2016-07-25] MEDS ORDERED: PRASUGREL 10 MG TAB PO SCH (09:00)
[2016-07-25] MEDS: ATORVASTATIN 40 MG TAB PO SCH (09:41)
[2016-07-25] MEDS: ASPIRIN EC 81 MG TABEC PO SCH (09:41)
[2016-07-25] MEDS: METOPROLOL TARTRATE 25 MG TAB PO SCH (09:41)
[2016-07-25] MEDS: SODIUM CHLORIDE 0.9% FLUSH 5 ML FLUSH FLUSH SCH (09:42)
--- NOTE | 2016-07-25 11:34 | EC ---
Study Study Date:07/25/2016 STUDY CONCLUSIONS SUMMARY LEFT VENTRICLE: The cavity size was normal. Wall thickness was normal. Systolic function was normal. The estimated ejection fraction was in the range of 55% to 60%. Wall motion was normal; there were no regional wall motion abnormalities. If LV function is below 40, please consider prescribing an ACEI or ARB or document rationale for non-use. PROCEDURE DATA STUDY STATUS: Elective. Procedure: Transthoracic echocardiography. Image quality was good. Scanning was performed from the parasternal, apical, and subcostal acoustic windows. Study completion: The patient tolerated the procedure well. Transthoracic echocardiography. M-mode, complete 2D, complete spectral Doppler, and color Doppler. Patient status: Inpatient. CARDIAC ANATOMY LEFT VENTRICLE: The cavity size was normal. Wall thickness was normal. Systolic function was normal. The estimated ejection fraction was in the range of 55% to 60%. Wall motion was normal; there were no regional wall motion abnormalities. AORTIC VALVE: Trileaflet; normal thickness leaflets. Doppler: Transvalvular velocity was within the normal range. There was no stenosis. No regurgitation. AORTA: Aortic root: The aortic root was normal in size. MITRAL VALVE: Structurally normal valve. Doppler: Transvalvular velocity was within the normal range. There was no evidence for stenosis. No regurgitation. Peak gradient: 4mm Hg (D). LEFT ATRIUM: The atrium was normal in size. RIGHT VENTRICLE: The cavity size was normal. Wall thickness was normal. PULMONIC VALVE: Doppler: Transvalvular velocity was within the normal range. There was no evidence for stenosis. No regurgitation. TRICUSPID VALVE: Structurally normal valve. Doppler: Transvalvular velocity was within the normal range. No regurgitation. PULMONARY ARTERY: The main pulmonary artery was normal-sized. Systolic pressure was within the normal range. RIGHT ATRIUM: The atrium was normal in size. PERICARDIUM: There was no pericardial effusion. SYSTEMIC VEINS: Inferior vena cava: The vessel was normal in size. BASIC MEASUREMENTS ADULT Normal Left ventricle LV internal dimension, ED, chordal level, *36.8 mm 43-52 PLAX LV posterior wall thickness, ED 7.01 mm IVS/LVPW ratio, ED 1.11 <1.3 Ventricular septum Septal thickness, ED 7.81 mm Left atrium Anterior-posterior dimension 28 mm Right ventricle RV internal dimension, ED, PLAX 19.7 mm 19-38 DOPPLER MEASUREMENTS ADULT Normal Mitral valve Peak E-wave velocity 98.7 cm/s Peak A-wave velocity 65.2 cm/s Peak gradient, D 4 mm Hg Peak E/A ratio 1.5 Tricuspid valve Regurgitant peak velocity 143 cm/s Peak RV-RA gradient, S 8 mm Hg Maximal regurgitant velocity 143 cm/s LEGEND: Mean values are shown as u=mean value. Asterisk (*) yates values outside specified normal range. Prepared and signed by Bright Rizo [id number]
[2016-07-25] MEDS ORDERED: ASPI81TA11 PO (13:23)
[2016-07-25] MEDS ORDERED: METO25TA3 PO (13:23)
[2016-07-25] MEDS ORDERED: LIPI40TA PO (13:23)
[2016-07-25] MEDS ORDERED: PRAS10TA PO (13:23)
--- NOTE | 2016-07-25 13:35 | HHI.DS ---
Discharge Summary Admission Date Jul 23, 2016 at 19:40 Discharge Date: Jul 25, 2016 Admitting Diagnosis NSTEMI (1) NSTEMI (non-ST elevated myocardial infarction) ICD Code: I21.4 Diagnosis: Principal Procedures Status post cardiac catheterization and PCI to the Ramus intermedius. Brief History - From Admission History taken from patient and ED physician. 51-year-old female with no medical history presented to the ED with complaints of chest pain and left arm pain. Patient states she was driving today and experienced sharp left arm pain that lasted about 20 minutes. Shortly after she began to have chest pain that was unrelieved until she received nitroglycerin in the ED. She denies any associated dizziness, shortness of breath, nausea, vomiting or diarrhea. She denies any history of [place], strokes, DVTs or PEs. She states 19 years ago she did have a left endarterectomy, last ultrasound was 7 years ago, she was not placed on any medications following. CBC/BMP: 07/25/16 0445 07/25/16 0445 Significant Findings Laboratory Tests Test 07/23/16 07/23/16 07/24/16 07/24/16 18:00 21:00 00:30 02:20 White Blood Count 12.2 TH/MM3 (4.0-11.0) Neutrophils (%) (Auto) 71.6 % (16.0-70.0) Neutrophils # (Auto) 8.8 TH/MM3 (1.8-7.7) Blood Urea Nitrogen 19 MG/DL (7-18) Estimat Glomerular Filtration 61 ML/MIN (>89) Rate Creatine Kinase MB 13.3 NG/ML 97.1 NG/ML (0.5-3.6) (0.5-3.6) Troponin I 1.98 NG/ML 18.90 NG/ML (0.02-0.05) (0.02-0.05) Antibody Screen POSITIVE Total Creatine Kinase 749 U/L (26-192) Creatine Kinase MB % 13.0 % (0.0-4.0) Activated Partial 33.4 SEC Thromboplast Time (24.3-30.1) Test 07/24/16 07/25/16 03:26 04:45 Monocytes (%) (Auto) 8.5 % (0.0-8.0) 12.2 % (0.0-8.0) Activated Partial 33.8 SEC Thromboplast Time (24.3-30.1) Estimat Glomerular Filtration 83 ML/MIN (>89) 78 ML/MIN (>89) Rate Total Creatine Kinase 802 U/L 285 U/L (26-192) (26-192) Creatine Kinase MB 106.5 NG/ML 15.1 NG/ML (0.5-3.6) (0.5-3.6) Creatine Kinase MB % 13.3 % 5.3 % (0.0-4.0) (0.0-4.0) Troponin I 23.20 NG/ML (0.02-0.05) Monocytes # (Auto) 1.2 TH/MM3 (0-0.9) Imaging Last Impressions Chest X-Ray 07/23/16 1802 Signed Impressions: Service Date/Time: Saturday, July 23, 2016 18:12 - CONCLUSION: No active disease. Simon Redman MD PE at Discharge Not in distress, well-nourished, looks stated age PERRL, pink conjunctiva without injection, anicteric Nose without bleeding, airway patent, oropharynx clear Supple neck, no masses or thyromegaly, trachea midline Normal rate and regular rhythm, no murmurs gallops or rubs appreciated. Clear to auscultation and symmetric bilaterally, normal respiratory effort. Normal bowel sounds, soft, non-tender, nondistended, no guarding. Extremities without clubbing, cyanosis, or edema. No rash of generalized distribution. Skin is warm and dry. AAO x3, no cranial nerve deficits, moves all 4 extremities, no focal neurologic deficits Normal mood, appropriate affect Pt update on day of discharge No chest pain, no shortness of breath. No palpitations. Stable, cleared by cardiology. Hospital Course This is a 51-year-old female with history of smoking, otherwise no comorbidities for setting with chest pain. EKG showed sinus rhythm with ST depression in leads II, II, AVF, V3, V4 and V6, troponin max of 23.3, cardiology was consulted, patient went for an urgent cardiac catheterization with stenting of the ramus intermedius. Patient was started on Aspirin, Lipitor , metoprolol, Effient. After 48 hours, patient remained stable. Echocardiogram was done which showed an ejection fraction of 55%. She will be discharged in a stable condition to follow up with her primary care physician and cardiology. Pt Condition on Discharge: Good Discharge Disposition: Discharge Home Discharge Time: > 30 minutes Discharge Instructions DIET: Follow Instructions for: Heart Healthy Diet Activities you can perform: Regular-No Restrictions Follow up Referrals: Cardiology - 2 Weeks PCP Follow-up - 1 Week New Medications: Aspirin DR (Aspirin EC) 81 Mg Tabdr 81 MG PO DAILY cad #30 TAB Atorvastatin (Lipitor) 40 Mg Tab 40 MG PO DAILY CAD #30 TAB Metoprolol Tartrate (Metoprolol Tartrate) 25 Mg Tab 25 MG PO Q12HR CAD #60 TAB Prasugrel (Effient) 10 Mg Tab 10 MG PO DAILY CAD #30 TAB Josue Koehler MD Jul 25, 2016 13:35
--- NOTE | 2016-07-25 16:01 | EKG ---
Date Performed: 07/25/2016 Time Performed: 05:55:08 PTAGE: 51 years EKG: Sinus rhythm Lateral T wave changes may be due to myocardial ischemia Compared to prior tracing no significant ch kris Abnormal ECG PREVIOUS TRACING : 07/24/2016 05.57 DOCTOR: Donte Orozco Interpretating Date/Time 07/25/2016 15:57:24
== END 2016-07-25 14:10 | disposition home or self-care (01) | DRG 249 ==
LOC: NEPC 17:16 → NEDA 19:40 → NEDH 07-24 00:41 → HCIS 07-24 10:07
PROVIDERS: ADMIT Hospitalist; ATTEND Hospitalist
PROC: 02703DZ Dilation of Coronary Artery, One Artery with Intraluminal Device, Percutaneous Approach (ICD-10-PCS; 2016-07-24)
PROC: B2111ZZ Fluoroscopy of Multiple Coronary Arteries using Low Osmolar Contrast (ICD-10-PCS; 2016-07-24)
PROC: 4A023N7 Measurement of Cardiac Sampling and Pressure, Left Heart, Percutaneous Approach (ICD-10-PCS; principal; 2016-07-24 08:30)
DX: I21.4 Non-ST elevation (NSTEMI) myocardial infarction (principal); F17.210 Nicotine dependence, cigarettes, uncomplicated; I25.10 Atherosclerotic heart disease of native coronary artery without angina pectoris; Z82.49 Family history of ischemic heart disease and other diseases of the circulatory system
CPT/HCPCS: 71010; 80048; 80061; 82550; 82552; 83735; 84484; 84703; 85025; 85610; 85730; 86077; 86850; 86870; 86900; 86901; 86902; 86920; 86921; 86922; 92928; 93005; 93306; 93454; C1769; C1876; C1887; C1893; J0583; J1644; J2250; J3010; Q9967